=== PATIENT | male | born 1975 | race African-American/Black ===

== ENCOUNTER 2016-05-03 11:22 | Emergency (ER) | payer SELFPAY ==
[~2016-05-03] VITALS: Ht 175.3 cm; Wt 84.1 kg
[2016-05-03 11:27] VITALS: BP 150/101; PULSE 77; RESP 16; O2SAT 95
[2016-05-03 11:43] LABS: BASOPHILS % (AUTO) 0.1 % (0-3); EOSINOPHILS % (AUTO) 0.8 % (0-5); MONOCYTES % (AUTO) 5.4 % (4-12); Mean Corpuscular Hemoglobin 27.7 pg (27.0-35.0); Mean Corpuscular Volume 82.9 fL (81-100); NEUTROPHILS % (AUTO) 56.5 % (40-74); Platelet Count 280 bil/L (150-400)
--- NOTE | 2016-05-03 12:01 | ED.REPORT ---
HPI-Chest Pain 40 and Over Date of Service May 03, 2016 ED Provider: Lori Mcfarland MD 40 year old male who is an everyday smoker with HTN, anxiety, and a family history of cardiac problems on his father's side presents to the ER via EMS complaining of multiple episodes of sharp, stabbing substernal chest pain sudden in onset while working just prior to arrival. Pain was 10/10 in severity during the initial episode, and radiated into his left shoulder/back. Subsequent episodes were 3/10 in severity. Currently pain is improved to 2/10. Associated symptoms include SOB and lightheadedness with onset of chest pain. Patient denies exacerbation of pain with inspiration, and lower extremity swelling. He attempted to relieve symptoms by moving around, stretching, and stepping outside for some fresh air which seemed to provide mild relief. Patient mentions that he often has periodic aching chest pain, though not severe or frequent enough to cause him concern. Last episode of such was several weeks ago and lasted about 7 minutes, described as a sensation of " being poked" with each inspiration. He had a stress test after that episode, at which time he was told to improve his diet and exercise more, with plan for follow-up. At his follow-up appointment he was given medications for high blood pressure and anxiety which did not seem to be effective so he discontinued use. Medics administered 325mg ASA and 1 NTG sublingual en route. Nursing Notes Stated Complaint: CHEST PAIN Chief Complaint: Chest Pain Nursing Notes Reviewed: Yes Allergies: Uncoded Allergies: NAPROX (Allergy, Unknown, rash, 05/03/16) General Time Seen by MD: 11:57 Chief Complaint Chest pain Hx Obtained From: Patient Arrived By: Ambulance Sudden in Onset?: Yes Onset Occurred: Just prior to arrival Symptom Duration: Since onset Location: : Substernal Quality: Sharp, Stabbing Radiation: : Back: Shoulder left Severity: Current: Pain level 2 out of 10 Severity: Maximum: Pain level 10 out of 10 Associated with: Reports: Lightheaded, Shortness of Breath Context Related History: Reports: Hypertension, Denies: Myocardial infarction Similar Sx Previous: No Past Medical History Past Medical History Anxiety Reports: Hypertension Family History Cardiac issues on Father's side. Smoking History Current Every Day Smoker Social History Alcohol Use: "Social" (Rarely) Other Social History: Good social support Ambulatory Status Independent Review of Systems Respiratory: Reports: Shortness of breath, Denies: Non-productive cough Cardiovascular: Reports: Chest pain GI: Denies: Nausea, Vomiting Musculoskeletal: Reports: Back pain (Left), Joint pain (Left Shoulder), Denies: Extremity pain, Neck pain Neurologic: Reports: Dizziness, Lightheaded Complete sys rev & neg: except as marked. Physical Exam Initial Vital Signs Vital Signs (First) Date Time Temp Pulse Resp B/P Pulse Ox O2 Delivery O2 Flow Rate FiO2 05/03/16 11:27 36.8 77 16 150/101 95 Room Air 05/03/16 12:28 2 Initial VS: Reviewed Head / Eyes: Atraumatic, Normocephalic Neck: Supple, Non-tender, Full range of motion Extremities: Vascular intact, Neuro intact, No swelling, No tenderness Skin: Warm, Dry, No cyanosis Neurologic: Alert, Oriented, Nonfocal General/Constitutional: Awake, Alert, Well developed, Well nourished Respiratory / Chest: Breath sounds NL, Breath sounds = bilat, No respiratory distress, No rales, No rhonchi, No wheezing Mild sternal left side chest pain, not the pain he comes to the ER complaining of. Cardiovascular: Heart rate NL, Regular rhythm, Heart sounds NL, No murmurs, Peripheral circulation NL, Pulses = bilaterally, No gross BP differential Bilateral BP's are fairly close. Abdomen: Soft, Non-tender, No guarding, No rebound, No distention Interpretation & Diagnostics Lab Results Interpretation Result Diagram: 05/03/16 1140 05/03/16 1140 Test 05/03/16 11:40 05/03/16 13:49 White Blood Count 9.6th/mm3 (3.8-10.1) Red Blood Count 5.02mil/mm3 (4.40-5.80) Hemoglobin 13.9g/dL (13.8-17.2) Hematocrit 41.6% (41.0-50.0) Mean Corpuscular Volume 82.9fL (81-100) Mean Corpuscular Hemoglobin 27.7pg (27.0-35.0) Mean Corpuscular Hemoglobin Concent 33.4% (32.0-37.0) Red Cell Distribution Width 12.6% (12.3-15.4) Platelet Count 280bil/L (150-400) Neutrophils (%) (Auto) 56.5% (40-74) Lymphocytes (%) (Auto) 37.0% (14-46) Monocytes (%) (Auto) 5.4% (4-12) Eosinophils (%) (Auto) 0.8% (0-5) Basophils (%) (Auto) 0.1% (0-3) Sodium Level 140mEq/L (134-144) Potassium Level 3.7mEq/L (3.5-5.2) Chloride Level 102mEq/L (97-108) Carbon Dioxide Level 24mmol/L (18-29) Blood Urea Nitrogen 7mg/dL (6-20) Creatinine 0.91mg/dL (0.76-1.27) Estimat Glomerular Filtration Rate 99mL/min (>59) Glucose Level 94mg/dL (60-99) Calcium Level 9.7mg/dL (8.5-10.1) Magnesium Level 2.0mg/dL (1.6-2.6) Total Bilirubin 0.5mg/dL (0.0-1.2) Aspartate Amino Transf (AST/SGOT) 27U/L (0-50) Alanine Aminotransferase (ALT/SGPT) 15U/L (0-44) Alkaline Phosphatase 85U/L (25-150) Total Protein 7.8g/dL (6.4-8.4) Albumin 4.6g/dL (3.4-5.0) Troponin T < 0.010ug/L (0.0-0.011) ECG Interpretation ECG Interpretation: Sinus rhythm, rate [address] elevation in v1, v2, v3 Inverted T waves in lead 3 No prior ECG available for comparison. Time: 11:42 Interpreted by: ED physician X-Ray Chest Interpretation Chest Xray Interpretation: IMPRESSION: No acute cardiopulmonary disease. Dictated by: Amandeep Richardson RRA Interpreted: Shy Campos MD on 05/03/2016 at 14:31 Transcribed by: RENA on 05/03/2016 at 14:31 View: Portable, 1 view Interpretation / Wet Read by: Interpret - Radiologist CT Chest Interpretation PROCEDURE: CT ANG CHEST/ABD W/WO CONTRAST ([id number]) IMPRESSION: 1. No evidence of aortic dissection. 2. No acute disease process. Dictated by: Shy Campos MD, PhD on 05/03/2016 at 13:23 Approved by: Shy Campos MD, PhD on 05/03/2016 at 13:30 Study type: Chest CT no contrast, Chest CT w contrast, CT pulm angiogram Interpretation / Wet Read by: Interpret - Radiologist Re-Eval/Medical Decision Med Decision/Clinical Course HEART score 3. Has been seen and evaluated by cardiology previously. Stress echo was low risk in 2010. Cardiac workup in the emergency department today is unremarkable. Anticipate discharge home, certainly needs aggressive treatment and management of his hypertension. Referral back to cardiology for further evaluation. Suspect current source of chest pain is more musculoskeletal. Responded nicely to Toradol today Source of Hx: Old records Time of Eval: 12:16 Re-Evaluation/Progress Note: Patient is now accompanied by his boss and his significant other who are at the bedside. Discussed ECG and physical examination findings and updated patient on the plan of care. Time of Eval: 12:56 Re-Evaluation/Progress Note: Patient history reviewed. Normal stress echocardiogram in January 2011. Counseled Regarding: Diagnosis, Lab results Discharge & Departure Primary Impression: Non-cardiac chest pain Additional Impression: Hypertension Disposition: Home Discharge Condition All VS Reviewed: Yes Condition: Stable Additional Instructions: Thank you for coming to the emergency department today. I feel it was very appropriate for you to be evaluated here. Workup today did not show any evidence of acute heart problems. You had had a full workup a number of years ago through the cardiology office and do need to follow up with the culinary chef regarding the continued chest pain Your blood pressure is elevated and needs adequate control. Clearly the lisinopril hydrochlorothiazide you were prescribed previously was ineffective for you. You will need to work with cardiology and your primary care physician to find a medication that works for you and is well tolerated. If you have recurrent issues such as you did today, please feel free to return to the emergency department for further evaluation Referrals: OTHER,PHYSICIAN (PCP) Scribe Attestation Portions of this note were transcribed by Tk Kirkland. I, Dr. Mcfarland, personally performed the history, physical exam and medical decision-making; I reviewed and confirmed the accuracy of the information in the transcribed note. Signed by: Arlyn Curran, 05/03/2016 and 14:52 copies to: Yash Michael MD, Shawna L MD May 03, 2016 12:01 TK KIRKLAND May 03, 2016 12:21
[2016-05-03 12:06] LABS: TROPONIN T 0.01 ug/L (0.0-0.011)
[2016-05-03 12:28] VITALS: BP_SYST 159; BP_SYST 164; BP_DIAS 103; BP_DIAS 82; PULSE 61; PULSE 68; RESP 17; RESP 19; O2SAT 100; O2SAT 99
--- NOTE | 2016-05-03 13:32 | DRSVH ---
PROCEDURE: CT ANG CHEST/ABD W/WO CONTRAST ([id number]) INDICATIONS: stabbing/tearing chest pain TECHNIQUE: Precontrast 5 mm thick sections acquired from the lung apices to the iliac crests. After the adminis tration of intravenous contrast, 3 mm thick sections again acquired from the lung apices to the iliac crests. 3-dimensional maximum intensity projection (MIP) oblique sagittal and coronal reformats wer e then acquired, and/or 3-dimensional volume rendering reformats. For radiation dose reduction, the following was used: automated exposure control. COMPARISON: None. FINDINGS: Image quality: Excellent. AORTA: Intramural hematoma: Absent Maximum hematoma thickness: Not applicable. Focal contrast enhancement: Intramural blood pool (< 2 mm neck or imperceptible communication with aortic lumen): Absent. Ulcer-like projection (broad communication with aortic lumen > 3 mm): Absent. Dissection: Absent [place] classification: Not applicable Maximum aortic diameter: 2.6 cm. [If [place] A dissection, > 5.0 cm has a poorer prognosis. If [place] B dissection, > 4.0 cm has a poorer prognosis.] Periaortic hematoma: Absent. CHEST: Lungs and pleura: No acute airspace opacities. Minimal, bilateral emphysematous changes noted. No pl eural effusions or pneumothorax. Central and peripheral airways are patent and normal in caliber. Mediastinum: Heart size is normal. No pericardial effusion. No mediastinal or hilar adenopathy by size criteria. Central pulmonary arteries are normal in size. No definite evidence of pulmonary embo domenic. Esophagus is normal in caliber. No hiatal hernias. Bones and chest wall: No axillary adenopathy by size criteria. Thyroid gland is within normal limit s. No suspicious bony lesions. No vertebral body compression fractures. ABDOMEN: Vasculature: Celiac trunk and mesenteric arteries are patent. Renal arteries are also patent. Scatt ered atherosclerotic calcifications are noted in the distal abdominal aorta. Solid organs: Liver and spleen are normal in size. Gallbladder is within normal limits. Biliary sy stem is non dilated. Pancreas enhances normally. No adrenal nodules. Both kidneys are normal in si ze and enhancement, without hydronephrosis. Peritoneum and bowel: No free fluid or air. Bowel loops are normal in caliber and wall thickness. Nodes and vessels: No retroperitoneal or mesenteric adenopathy by size criteria. Inferior vena cava is normal in morphology. Bones: No suspicious bony lesions. No vertebral body compression fractures. Miscellaneous: No ventral hernias. IMPRESSION: 1. No evidence of aortic dissection. 2. No acute disease process. Dictated by: Shy Campos MD, PhD on 05/03/2016 at 13:23 Approved by: Shy Campos MD, PhD on 05/03/2016 at 13:30
--- NOTE | 2016-05-03 14:32 | DRSVH ---
PROCEDURE: X-RAY CHEST ONE VIEW, PORTABLE ([id number]) INDICATIONS: cp TECHNIQUE: One view of the chest was acquired. COMPARISON: [facility], , CHEST 1VW (PORTABLE), 10/30/2010, 10:24. FINDINGS: Surgical changes and devices: None. Lungs and pleura: No pleural effusions or pneumothorax. Lungs are clear. Mediastinum: Mediastinal contours appear normal. Heart size is normal. Bones and chest wall: No suspicious bony lesions. Overlying soft tissues appear unremarkable. IMPRESSION: No acute cardiopulmonary disease. Dictated by: Amandeep Richardson [facility] Interpreted: Shy Campos MD on 05/03/2016 at 14:31 Transcribed by: RENA on 05/03/2016 at 14:31 Approved by: Shy Campos MD, PhD on 05/03/2016 at 16:58
[2016-05-03 16:11] VITALS: BP 132/89; PULSE 58; RESP 16
[2016-05-03 16:36] VITALS: BP 132/89; PULSE 58; RESP 16; O2SAT 99
== END 2016-05-03 15:53 | disposition home or self-care (01) ==
LOC: SED 11:22
DX: R07.89 Other chest pain (principal); I10 Essential (primary) hypertension; F17.200 Nicotine dependence, unspecified, uncomplicated
CPT/HCPCS: 36415; 71010; 71275; 74175; 80053; 83735; 84484; 85025; 93005; 96374; 99285; Q9967